=== PATIENT | female | born 1975 | race Caucasian/White ===

== ENCOUNTER → 2021-06-29 | Outpatient (CLI) | payer OTHER ==
[~2021-06-29] MED LIST: FLEXERIL5 MG PO; MOTRIN800 MG PO; ULTRAM50 MG PO
== END ==
LOC: WOUNDCARE 14:36
PROVIDERS: ATTEND Nurse Practitioner Family
DX: L97.322 Non-pressure chronic ulcer of left ankle with fat layer exposed (principal); S81.802A Unspecified open wound, left lower leg, initial encounter; I82.402 Acute embolism and thrombosis of unspecified deep veins of left lower extremity; F17.200 Nicotine dependence, unspecified, uncomplicated; Z79.899 Other long term (current) drug therapy; X58.XXXA Exposure to other specified factors, initial encounter; Y92.89 Other specified places as the place of occurrence of the external cause; Y93.89 Activity, other specified; Y99.8 Other external cause status

== ENCOUNTER → 2021-07-08 | Outpatient (CLI) | payer OTHER | LOC: WOUNDCARE 05:43 | PROVIDERS: ATTEND Nurse Practitioner Family | DX: L97.322 Non-pressure chronic ulcer of left ankle with fat layer exposed (principal); S81.802D Unspecified open wound, left lower leg, subsequent encounter; I82.402 Acute embolism and thrombosis of unspecified deep veins of left lower extremity; M79.662 Pain in left lower leg; F17.200 Nicotine dependence, unspecified, uncomplicated; Z79.899 Other long term (current) drug therapy; X58.XXXD Exposure to other specified factors, subsequent encounter ==